=== PATIENT | female | born 1960 | race African-American/Black ===

== ENCOUNTER 2019-03-02 09:53 | Emergency (ER) | payer OTHER ==
[2019-03-02 10:02] VITALS: BMI 25.3
--- NOTE | 2019-03-02 10:33 | PDOC ---
History of Present Illness - General Chief Complaint: Lightheaded Stated Complaint: HEADACHE / DIZZYNESS Time Seen by Provider: 03/02/19 10:13 - History of Present Illness Initial Comments: 03/02/19 10:33 HPI: 58 y/o F with hx of DM, HTN, HLD presenting with complaints of not feeling well since yesterday. She states she had a headache that is 7/10 pain and located BL frontal with radiation occipitally and not relieved with tylenol. She also reports LH without syncope, worse when standing up from bed as well as decreased energy. She denies fever, chest pain, SOB, n/v, abd pain, myalgias, joint pain, dysuria, no cough, sore throat, congestion. 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 She also reports increased urinary urgency and that she does not check her Gluc at home. PMHx: as noted above ROS: as noted SHx: Denies tobacco use; no alcohol use; no rec drugs Allergies: penicillins ROS: GENERAL/CONSTITUTIONAL: No fever or chills. +generalized weakness. HEAD, EYES, EARS, NOSE AND THROAT: No change in vision. No ear pain or discharge. No sore throat. CARDIOVASCULAR: No chest pain or shortness of breath RESPIRATORY: No cough, wheezing, or hemoptysis. GASTROINTESTINAL: No nausea, vomiting, diarrhea or constipation. GENITOURINARY: No dysuria MUSCULOSKELETAL: No joint or muscle swelling or pain. No neck or back pain. SKIN: No rash NEUROLOGIC: +headache; no vertigo, loss of consciousness, or change in strength/ sensation. ENDOCRINE: No increased thirst. No abnormal weight change HEMATOLOGIC/LYMPHATIC: No anemia, easy bleeding, or history of blood clots. ALLERGIC/IMMUNOLOGIC: No hives or skin allergy. PE: GENERAL: Awake, alert, and fully oriented, no acute distress HEAD: No signs of trauma, normocephalic, atraumatic EYES: EOMI, sclera anicteric, conjunctiva clear ENT: Auricles normal inspection, hearing grossly normal, nares patent, oropharynx clear without exudates. Moist mucosa NECK: Normal ROM, no lymphadenopathy LUNGS: No increased work of breathing, symmetrical chest rise, clear to auscultation bilaterally, no wheezes, crackles or rhonchi HEART: Regular rate, regular rhythm, normal S1 and S2, no murmur, peripheral pulses 2+ and equal bilaterally. ABDOMEN: Soft, nondistended, nontender, normoactive bowel sounds. No guarding, no rebound. No masses. No CVAT MUSCULOSKELETAL: FROM NEUROLOGICAL: Cranial nerves II through XII grossly intact. Normal speech, normal gait, no focal sensorimotor deficits SKIN: Warm, Dry, normal turgor, no rashes or lesions noted Past History - Past Medical History Allergies/Adverse Reactions: Allergies Allergy/AdvReac Type Severity Reaction Status Date / Time Penicillins Allergy Verified 03/02/19 10:00 Home Medications: Ambulatory Orders Amlodipine Besylate [Norvasc -] 5 mg PO DAILY 03/02/19 Metformin HCl [Glucophage] 500 mg PO BID 03/02/19 Simvastatin 40 mg PO HS 03/02/19 COPD: No HTN: Yes - Immunization History Immunization Up to Date: No - Psycho Social/Smoking Cessation Hx Smoking History: Never smoked Have you smoked in the past 12 months: No Information on smoking cessation initiated: No Hx Alcohol Use: No Drug/Substance Use Hx: No *Physical Exam - Vital Signs Last Vital Signs Temp Pulse Resp BP Pulse Ox 98.4 F 89 16 141/84 100 03/02/19 10:00 03/02/19 10:00 03/02/19 10:00 03/02/19 10:00 03/02/19 10:00 ED Treatment Course - LABORATORY CBC & Chemistry Diagram: 03/02/19 11:36 03/02/19 11:36 Medical Decision Making - Medical Decision Making 03/02/19 12:36 58 y/o F with hx of DM, HTN, HLD presenting with complaints of not feeling well since yesterday including VARGAS, LH, generalized weakness/fatigue. VSS, AF. PE unremarkable. DDx includes dehydration, lyte abnormailty, anemia, hypo/ hyperglycemia -cbc, cmp, mg, phos, ekg, trop -ivf, reglan, ofirmev 03/02/19 13:30 CK 418; other labs wnl ekg nsr, nl intervals, no paulette/d patient feels improved following intervention discussed with patient results and recommended followup with PCP; she understands and all questions were answered Discharge - Discharge Information Problems reviewed: Yes Clinical Impression/Diagnosis: Generalized weakness Headache Qualifiers: Headache type: unspecified Headache chronicity pattern: unspecified pattern Intractability: not intractable Qualified Code(s): R51 - Headache Condition: Stable Disposition: HOME - Follow up/Referral Referrals: Layne Eller MD [Primary Care Provider] - - Patient Discharge Instructions Patient Printed Discharge Instructions: DI for Headache Additional Instructions: Additional Instructions: Please return to the emergency department with any new or worsening symptoms or concerns. Please follow up with your primary care physician within 3-7 days for re- evaluation You may take tylenol 650mg every 6 hours as needed for pain control and ibuprofen 600mg every 6 hours as needed for pain control - Post Discharge Activity
[2019-03-02] MEDS ORDERED: METOCLOPRAMIDE HCL INJECTION 10 MG/2 ML VIAL IVPUSH ONE (10:56)
[2019-03-02] MEDS ORDERED: SODIUM CHLORIDE 1,000 ML IV STA (10:56)
[2019-03-02] MEDS ORDERED: ACETAMINOPHEN 1000 MG/100 ML VIAL (NON FORMULARY) IVPB ONE (10:56)
[2019-03-02] MEDS ORDERED: METOCLOPRAMIDE HCL INJECTION 10 MG/2 ML VIAL ONE (11:07)
[2019-03-02] MEDS ORDERED: ACETAMINOPHEN INJECTION 100 ML IVPB ONE (11:07)
--- NOTE | 2019-03-02 11:19 | PDOC ---
Documentation entered by Tangela Teixeira SCRIBE, acting as scribe for Nisha Angeles DO. Nisha Angeles DO: This documentation has been prepared by the Lluvia caballero Nirvannie, SCRIBE, under my direction and personally reviewed by me in its entirety. I confirm that the documentation accurately reflects all work, treatment, procedures, and medical decision making performed by me. Attending Attestation - Resident Resident Name: Valeria Jules - ED Attending Attestation I have performed the following: I have examined & evaluated the patient, The case was reviewed & discussed with the resident, I agree w/resident's findings & plan, Exceptions are as noted - HPI HPI: 03/02/19 11:21 The patient is a 58 year old female, with a significant past medical history of NIDDM (does not check blood glucose level), who presents to the emergency department with 2 days of lightheadedness and dizziness. Patient notes 3 days ago she experienced 2 episodes of transient dull, achy chest pain. Patient notes she has associated urinary frequency and paresthesias to the toes and intermittent blurred vision for an extended period of time. She has not checked her blood glucose levels in an extended period of time and notes poor hydration (less than a bottle per day). She denies recent fevers, chills, cough, or congestion. She denies recent nausea , vomiting, diarrhea or constipation. Allergies: Penicillins. Primary Care Physician: Dr. Eller - Physicial Exam PE: 03/02/19 11:26 Constitutional: Awake, alert, oriented. No acute distress. Head: Normocephalic. Atraumatic Eyes: PERRL. EOMI. Conjunctivae are not pale. ENT: + Mucous membranes are dry and tacky. Posterior pharynx without exudates or erythema. Uvula midline. Neck: Supple. Full ROM. No lymphadenopathy. Cardiovascular: Regular rate. Regular rhythm. S1, S2 regular. Distal pulses are 2+ and symmetric. Pulmonary/Chest: No evidence of respiratory distress. Clear to auscultation bilaterally No wheezing, rales or rhonchi. Abdominal: Soft and non-distended. There is no tenderness. No rebound, guarding or rigidity. No organomegaly. No palpable masses. Good bowel sounds. Back: No CVA tenderness. Musculoskeletal: No edema. No cyanosis. No clubbing. Full range of motion in all extremities. No calf tenderness. Radial/pedal pulses are intact and 2+ bilaterally Skin: Skin is warm and dry. No petechiae. No purpura. Neurological: Alert and oriented to person, place, and time. Cranial nerves II -XII are grossly intact. Normal speech. Strength is grossly symmetric. No sensory deficits. Psychiatric: Good eye contact. Normal interaction, affect and behavior. - Medical Decision Making 03/02/19 11:14 a/p: 58yo female with htn, hld, dm with lightheaded, dizzy, weak since yesterday -states mild hugo since yesterday -pt states she felt an ache in her chest 2 days ago which has since resolved -no rhinorrhea, sore throat -states she urinates freq and feels thirsty -pt with wt loss -pt states she has not checked her glu in a long time, takes metformin -states she gets up to urinate freq at night -pt denies f/c, abd pain, n/v/d -states intermittent blurred vision and tingling in L toes which is new -pt states she has not see an eye doc in over a year and 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
[2019-03-02 11:54] LABS: BASO % 0.4 % (0-2.0); EOS % 0.6 % (0-4.5); HEMOGLOBIN 13.2 GM/dL (10.7-15.3); LYMPH % 29.5 % (8-40); MCH 26.1 pg (25.7-33.7); MCHC 32.2 g/dl (32.0-36.0); MEAN PLT VOLUME 8.6 fl (7.5-11.1); MONO % 10.1 % (3.8-10.2); NEUT % 59.4 % (42.8-82.8); PLATELET COUNT 261 K/MM3 (134-434); RBC 5.06 M/mm3 (3.60-5.2); WHITE BLOOD COUNT 5.3 K/mm3 (4.0-10.0)
[2019-03-02 12:41] LABS: ALBUMIN 3.9 g/dl (3.4-5.0); ALK PHOS 75 U/L (45-117); ANION GAP 8 MMOL/L (8-16); BILIRUBIN,TOTAL 0.5 mg/dL (0.2-1); BLOOD UREA NITROGEN 11.5 mg/dL (7-18); CHLORIDE 107 mmol/L (98-107); CO2 25 mmol/L (21-32); CREATININE 0.8 mg/dL (0.55-1.3); GLUCOSE,RANDOM 97 mg/dL (74-106); MAGNESIUM 2.3 mg/dL (1.8-2.4); PHOSPHOROUS 3.8 mg/dL (2.5-4.9); POTASSIUM 4.2 mmol/L (3.5-5.1); SGOT/AST 19 U/L (15-37); SGPT/ALT 27 U/L (13-61); SODIUM 140 mmol/L (136-145); TOT PROT 7.4 g/dl (6.4-8.2)
[2019-03-02 12:43] VITALS: BP 108/60; PULSE 72; TEMP 97.8
[2019-03-02 12:51] LABS: URINE APPEARANCE CLEAR; URINE BILIRUBIN NEGATIVE (NEGATIVE); URINE COLOR YELLOW; URINE GLUCOSE (UA) NEGATIVE (NEGATIVE); URINE KETONE NEGATIVE (NEGATIVE); URINE LEUK ESTERASE NEGATIVE (NEGATIVE); URINE NITRITE NEGATIVE (NEGATIVE); URINE PROTEIN NEGATIVE (NEGATIVE); URINE UROBILINOGEN 0.2 mg/dL (0.2-1.0)
--- NOTE | 2019-03-03 12:37 | EKG ---
Test Reason : Blood Pressure : / mmHG Vent. Rate : 070 BPM Atrial Rate : 070 BPM P-R Int : 154 ms QRS Dur : 088 ms QT Int : 418 ms P-R-T Axes : 069 067 050 degrees QTc Int : 451 ms NORMAL SINUS RHYTHM NORMAL ECG NO PREVIOUS ECGS AVAILABLE Confirmed by MICHELLE BERMEO MD ([id number]) on 03/03/2019 12:36:55 PM Referred By: Confirmed By:MICHELLE BERMEO MD
== END 2019-03-02 14:04 | disposition home or self-care (01) ==
LOC: JER 09:53
PROC: 3E033NZ Introduction of Analgesics, Hypnotics, Sedatives into Peripheral Vein, Percutaneous Approach (ICD-10-PCS; principal; 2019-03-02)
PROC: 3E033GC Introduction of Other Therapeutic Substance into Peripheral Vein, Percutaneous Approach (ICD-10-PCS; 2019-03-02)
DX: R51 Headache (principal); R53.1 Weakness; I10 Essential (primary) hypertension; E11.9 Type 2 diabetes mellitus without complications; Z79.84 Long term (current) use of oral hypoglycemic drugs; E78.5 Hyperlipidemia, unspecified; Z88.0 Allergy status to penicillin
CPT/HCPCS: 36415; 80053; 81003; 82550; 82553; 82962; 83735; 84100; 84484; 85025; 93005; 93010; 96374; 96375; 99283-25; J0131; J7030

== ENCOUNTER 2019-03-18 05:19 | Day surgery (SDC) | payer OTHER ==
[2019-03-04 15:12] VITALS: BMI 26.2
[2019-03-18] MEDS ORDERED: DEXAMETHASONE SOD PHOSPHATE 4 MG/1 ML VIAL ONE (08:15)
[2019-03-18] MEDS ORDERED: KETOROLAC TROMETHAMINE 30 MG/1 ML VIAL ONE (08:15)
[2019-03-18] MEDS ORDERED: PROPOFOL 20 ML ONE (08:15)
[2019-03-18] MEDS ORDERED: MIDAZOLAM HCL 2 MG/2 ML SINGLE DOSE VIAL ONE (08:15)
[2019-03-18] MEDS ORDERED: SUCCINYLCHOLINE CHLORIDE 200 MG/10 ML SYRINGE ONE (08:32)
[2019-03-18] MEDS ORDERED: ONDANSETRON 4 MG/2 ML VIAL IVPUSH PRN (09:19)
[2019-03-18] MEDS ORDERED: oxyCODONE HCL 5 MG TABLET PO PRN (09:19)
[2019-03-18] MEDS ORDERED: LACTATED RINGERS SOLUTION 1,000 ML IV SCH (09:30)
[2019-03-18] MEDS ORDERED: IBUPROFEN 400 MG TABLET (FP) PO PRN (10:30)
[2019-03-18] MEDS ORDERED: ACETAMINOPHEN 325 MG TABLET (FP) PO PRN (10:30)
--- NOTE | 2019-03-18 10:30 | HP ---
History & Physical Update - History History: No Change - Physical Physical: No Change - Assessment Assessment: No Change - Plan Plan: No Change (No change iin HP)
[2019-03-18] MEDS ORDERED: CLINDAMYCIN PHOSPHATE 600 MG/4 ML VIAL ONE (10:39)
[2019-03-18] MEDS ORDERED: CLINDAMYCIN 600 MG PREMIX BAG IVPB ONE (10:39)
--- NOTE | 2019-03-18 11:19 | OP ---
Operative Note - Note: Operative Date: 03/18/19 Pre-Operative Diagnosis: Endometrial polyps Operation: Hysteroscopic myomectomy. Suction DC Findings: Endometrial polyps x2 SUbmucosal myoma x 1 Post-Operative Diagnosis: Same as Pre-op Surgeon: Bharati Braga Anesthesia: General Estimated Blood Loss (mls): 10 Operative Report Dictated: Yes
[2019-03-18 16:07] VITALS: BP 145/86; PULSE 80; TEMP 97.8
--- NOTE | 2019-03-18 16:50 | OP ---
DATE OF OPERATION: 03/18/2019 PREOPERATIVE DIAGNOSIS: Endometrial polyps. OPERATION: Hysteroscopic myomectomy, suction dilation and curettage. POSTOPERATIVE DIAGNOSIS: Endometrial polyps. SURGEON: Bharati Braga MD ANESTHESIA: General. ANESTHESIOLOGIST: Danii Mullins MD PROCEDURE: Patient was taken to the operating room, placed in dorsal lithotomy position, prepped and draped in the usual sterile fashion. A time-out was performed in accordance with hospital regulation. Cervix was noted to be prolapsed out of the perineum. Tenaculum was then used to grasp the anterior lip of the cervix. Cervix was then dilated to accommodate the operative hysteroscope. Operative hysteroscope was inserted. Endometrial polyps and submucosal myomas were seen. Cautery and cutting of the polyps was then performed followed by suction dilation and curettage. This procedure was repeated several times until the cavity was clean and then all instruments were then removed. Estimated blood loss was 10 mL. Patient tolerated the procedure well and was taken to recovery room in stable condition. BHARATI BRAGA M.D. TATYANA/[id number]
--- NOTE | 2019-03-19 14:36 | PATH ---
Surgical Pathology Report Patient Name: DREW SAAVEDRA [facility]. Rec. #: [id number] /Age/Gender: 1960 (Age: 58) / F Account: [id number] Location: [facility] Taken: 03/18/2019 Received: 03/18/2019 Reported: 03/19/2019 Physicians: Bharati Braga M.D. Specimen(s) Received SUBMUCOSAL MYOMA AND ENDOMETRIAL POLYP Clinical History Endometrial polyps and fibroid Final Diagnosis SUBMUCOSAL MYOMA AND ENDOMETRIAL POLYP, EXCISION: FRAGMENTS OF ENDOMETRIAL POLYP. SEPARATE FRAGMENTS SMOOTH MUSCLE BUNDLES, CONSISTENT WITH SUBMUCOSAL LEIOMYOMA. Electronically Signed Radha Crooks M.D. Gross Description Received in formalin labeled "submucosal myoma and endometrial polyp," is a 1.8 x 1.5 x 0.2 cm aggregate of rivera-pink soft tissue fragments. The formalin is filtered and the specimen is entirely submitted in one cassette. /03/18/2019 saudi/03/18/2019
== END 2019-03-18 15:30 | disposition home or self-care (01) ==
LOC: JASU-SURG 05:19
PROVIDERS: ATTEND Obstetrics & Gynecology
PROC: 0UJD8ZZ Inspection of Uterus and Cervix, Via Natural or Artificial Opening Endoscopic (ICD-10-PCS; 2019-03-18)
PROC: 0UB98ZZ Excision of Uterus, Via Natural or Artificial Opening Endoscopic (ICD-10-PCS; principal; 2019-03-18 08:30)
PROC: 0UDB7ZX Extraction of Endometrium, Via Natural or Artificial Opening, Diagnostic (ICD-10-PCS; 2019-03-18 08:30)
DX: N84.0 Polyp of corpus uteri (principal); D25.0 Submucous leiomyoma of uterus
CPT/HCPCS: 82962; 86850; 86900; 86901; 88305-TC; 94760

== ENCOUNTER 2021-11-25 11:10 | Emergency (ER) | payer OTHER ==
[2021-11-25 11:33] VITALS: RESP 18; BMI 24.2
[2021-11-25] MEDS ORDERED: MECLIZINE HCL 25 MG TABLET (FP) PO ONE (13:03)
[2021-11-25] MEDS ORDERED: SODIUM CHLORIDE 0.9% 500 ML INFUS.BAG IV ONE (13:03)
[2021-11-25 14:25] LABS: BASO % 0.4 % (0-2.0); EOS % 0.7 % (0-4.5); HEMATOCRIT 39.4 % (32.4-45.2); HEMOGLOBIN 13.1 GM/dL (10.7-15.3); LYMPH % 33.7 % (8-40); MCH 26.4 pg (25.7-33.7); MCHC 33.2 g/dl (32.0-36.0); MEAN CELL VOLUME 79.5 fl (80-96); MEAN PLT VOLUME 8.4 fl (7.5-11.1); MONO % 11.4 % (3.8-10.2); NEUT % 53.8 % (42.8-82.8); PLATELET COUNT 267 10^3/uL (134-434); RBC 4.95 M/mm3 (3.60-5.2); RDW 14.8 % (11.6-15.6); WHITE BLOOD COUNT 5.2 K/mm3 (4.0-10.0)
[2021-11-25 14:48] LABS: BLOOD UREA NITROGEN 9.2 mg/dL (7-18); CALCIUM 9.2 mg/dL (8.5-10.1)
[2021-11-25 14:49] LABS: ALBUMIN 3.9 g/dl (3.4-5.0)
[2021-11-25 14:52] LABS: CREATININE 0.7 mg/dL (0.55-1.3)
[2021-11-25 14:53] LABS: BILIRUBIN,TOTAL 0.4 mg/dL (0.2-1)
[2021-11-25 14:56] LABS: TOT PROT 7.7 g/dl (6.4-8.2)
[2021-11-25] MEDS ORDERED: ACETAMINOPHEN 325 MG TABLET (FP) PO ONE (15:41)
[2021-11-25] MEDS ORDERED: ACETAMINOPHEN 325 MG TABLET (FP) ONE (15:45)
[2021-11-25 15:56] VITALS: BP 145/81; PULSE 76; TEMP 98.1
== END 2021-11-25 16:47 | disposition home or self-care (01) ==
LOC: JER 11:10
DX: R51.9 Headache, unspecified (principal); R53.1 Weakness; R42 Dizziness and giddiness
CPT/HCPCS: 36415; 70450-TC; 80053; 82962; 85025; 93005; 93010; 99285-25

== ENCOUNTER 2023-09-12 12:59 | Emergency (ER) | payer OTHER ==
[2023-09-12] MEDS ORDERED: ACETAMINOPHEN INJECTION 100 ML IVPB ONE (13:17)
[2023-09-12] MEDS: ACETAMINOPHEN 1000 MG/100 ML BAG IVPB ONE (13:35)
[2023-09-12] MEDS: SODIUM CHLORIDE 0.9% 500 ML INFUS.BAG IV ONE (13:35)
[2023-09-12 13:53] LABS: BASO % 0.8 % (0-2.0); EOS % 0.6 % (0-4.5); HEMATOCRIT 39.1 % (32.4-45.2); HEMOGLOBIN 12.7 GM/dL (10.7-15.3); LYMPH % 33.1 % (8-40); MCH 25.1 pg (25.7-33.7); MCHC 32.6 g/dl (32.0-36.0); MEAN CELL VOLUME 77.1 fl (80-96); MEAN PLT VOLUME 8.5 fl (7.5-11.1); MONO % 11.8 % (3.8-10.2); NEUT % 53.7 % (42.8-82.8); PLATELET COUNT 250 10^3/uL (134-434); RBC 5.07 M/mm3 (3.60-5.2); RDW 16.4 % (11.6-15.6); WHITE BLOOD COUNT 4.4 K/mm3 (4.0-10.0)
[2023-09-12 14:19] LABS: POTASSIUM 4.3 mmol/L (3.5-5.1)
[2023-09-12 14:21] LABS: ALBUMIN 3.7 g/dl (3.4-5.0); BLOOD UREA NITROGEN 9.7 mg/dL (7-18); CALCIUM 8.9 mg/dL (8.5-10.1)
[2023-09-12 14:24] LABS: CREATININE 0.8 mg/dL (0.55-1.3)
[2023-09-12 14:26] LABS: BILIRUBIN,TOTAL 0.5 mg/dL (0.2-1); TOT PROT 7.5 g/dl (6.4-8.2)
[2023-09-12 14:39] LABS: PH,URINE 5.5 (5.0-8.0); URINE APPEARANCE CLEAR; URINE BILIRUBIN NEGATIVE (NEGATIVE); URINE COLOR YELLOW; URINE GLUCOSE (UA) NEGATIVE (NEGATIVE); URINE KETONE NEGATIVE (NEGATIVE); URINE LEUK ESTERASE NEGATIVE (NEGATIVE); URINE NITRITE NEGATIVE (NEGATIVE); URINE PROTEIN NEGATIVE (NEGATIVE); URINE UROBILINOGEN 0.2 mg/dL (0.2-1.0)
[2023-09-12 15:29] VITALS: BP 146/76; PULSE 61; RESP 19; TEMP 98.7; BMI 25.8
== END 2023-09-12 15:23 | disposition home or self-care (01) ==
LOC: JER 12:59
PROC: 3E033NZ Introduction of Analgesics, Hypnotics, Sedatives into Peripheral Vein, Percutaneous Approach (ICD-10-PCS; principal; 2023-09-12)
DX: R42 Dizziness and giddiness (principal); R53.83 Other fatigue; R51.9 Headache, unspecified; R53.1 Weakness; R61 Generalized hyperhidrosis; Z20.822 Contact with and (suspected) exposure to COVID-19
CPT/HCPCS: 0241U-QW; 36415; 80053; 81003; 83735; 85025; 87086; 93005; 93010; 99284-25; J0131

== ENCOUNTER 2024-09-06 12:20 | Emergency (ER) | payer OTHER ==
[2024-09-06 12:32] VITALS: TEMP 98.3; BMI 27.9
[2024-09-06 13:43] LABS: ABSOLUTE IMMATURE GRANULOCYTES 0.00 x10^3/uL (0.0-0.031); BASOPHILS # 0.02 x10^3/uL (0.01-0.08); EOSINOPHIL % 0.8 % (0.7-5.8); EOSINOPHILS # 0.04 x10^3/uL (0.04-0.36); MCHC 30.2 g/dl (32.2-35.5); MEAN CELL VOLUME 81.5 fl (79.4-94.8); MEAN PLT VOLUME 10.4 fl (9.4-12.3); MONOCYTE # 0.49 x10^3/uL (0.24-0.86); MONOCYTE % 9.6 % (4.7-12.5); RDW 14.6 % (12.4-16.4)
[2024-09-06 14:53] LABS: CO2 29.0 mmol/L (21-32); GLUCOSE,RANDOM 159.0 mg/dL (74-106)
[2024-09-06 14:56] LABS: CREATININE 0.7 mg/dL (0.55-1.3); SGOT/AST 23.0 U/L (15-37); SGPT/ALT 26.0 U/L (13-61)
[2024-09-06 14:58] LABS: TOT PROT 7.1 g/dl (6.4-8.2)
[2024-09-06 14:59] LABS: ALK PHOS 66.0 U/L (45-117)
[2024-09-06 15:02] LABS: N-TERMINAL BNP 36.9 pg/ml (5-125)
[2024-09-06] MEDS ORDERED: ACETAMINOPHEN 500 MG TABLET (FP) ONE (15:41)
[2024-09-06] MEDS: ACETAMINOPHEN 500 MG TABLET (FP) PO ONE (15:42)
[2024-09-06 16:50] VITALS: BP 136/76; PULSE 65; RESP 16
[2024-09-06 19:00] LABS: HIV INTERPRETATION NEGATIVE (NEGATIVE)
[2024-09-06 19:03] LABS: HCV DIAGNOSTIC IN-HOUSE W/RFLX NON-REACTIVE (NONREACTIVE)
== END 2024-09-06 16:50 | disposition home or self-care (01) ==
LOC: JER 12:20
DX: R60.0 Localized edema (principal); R07.89 Other chest pain; T46.5X5A Adverse effect of other antihypertensive drugs, initial encounter
CPT/HCPCS: 36415; 80053; 83735; 83880; 84439; 84443; 84484; 85025; 86803; 87389; 93005; 93010; 93970-TC; 99285-25